=== PATIENT | female | born 1990 | race Caucasian/White ===

== ENCOUNTER 2018-09-27 14:11 | Emergency (ER) | payer BC ==
[~2018-09-27] VITALS: Ht 170.2 cm; Wt 86.2 kg
--- NOTE | ~2018-09-27 | PROC ---
[address] [address] PROCEDURE REPORT Name: BASIL DSOUZA Room: [facility] ESHA Toney#: [id number] Admission: 09/27/18 Attend Phys: Discharge: 09/27/18 Date of : 88 Report #: [id number] THIS REPORT FOR: //name// For GI report, please see the Provation report in [employer] 7 content. By: [id number] Records Staff HUMBERTO /PRICILLA
[~2018-09-27 14:11] MED LIST: EPIPEN 2-P0.3 MG/0.3 IM; FLONASE 0.05%50 MCG NASAL; PROAIR HFA8.5 GM INH
[2018-09-27] MEDS ORDERED: ZYRTEC10 M5 PO (14:36)
[2018-09-27 15:15] LABS: ABSOLUTE BASOPHILS 0.1 thou/uL (0.0-0.2); ABSOLUTE EOSINOPHILS 0.1 thou/uL (0.0-0.7); ABSOLUTE MONOCYTES 0.5 thou/uL (0.0-1.2); BASOPHILS 0.6 %; EOSINOPHILS 0.7 %; HEMATOCRIT 43.8 % (37.0-47.0); HEMOGLOBIN 14.9 gm/dL (12.0-15.0); LYMPHOCYTES 9.4 %; MCH 30.3 pg (26.0-34.0); MCHC 34.1 g/dL (28.0-37.0); MONOCYTES 4.4 %; NUCLEATED RBCS 0 /100WBC; PLATELET COUNT* 289 thou/uL (150-400); POLYS 84.9 %; RBC 4.92 mil/uL (4.20-5.00); RDW-CV 12.5 % (10.5-14.5); WBC 10.6 thou/uL (4.0-11.0)
[2018-09-27 15:24] LABS: CALCIUM 9.3 mg/dL (8.5-10.1); CREATININE 0.8 mg/dL (0.6-1.3); POTASSIUM 3.9 mmol/L (3.5-5.1)
[2018-09-27 15:26] LABS: APTT 30.3 Seconds (25.0-31.3); PROTIME 10.7 Seconds (9.20-11.50)
[2018-09-27 16:05] VITALS: BP 143/92
--- NOTE | 2018-09-29 14:05 | PATH ---
[facility] [address] [place] [address] PATHOLOGY RPT PROCEDURE Name: SIVANESTEBANBASIL Maciel VANESSA Room: [facility] Feng#: [id number] Admission: 09/27/18 Date of : 88 Discharge: 09/27/18 Report #: [id number] Path Case #: [id number] [facility] Accession Number: [id number] . 01 Material submitted: . PART A: esophagus - ESOPHAGEAL BIOPSIES 40CM FOR EOE PART B: esophagus - ESOPHAGEAL BIOPSIES 35CM FOR EOE PART C: esophagus - ESOPHAGEAL BIOPSIES 30CM FOR EOE . 01 Clinical history: . Eosinophilic esophagitis . 02 Diagnosis: A. Esophagus, 40 cm, biopsy: - Hyperplastic squamous epithelium with increased intraepithelial eosinophils. - Ulceration, focal, with acute ulcer exudate. . B, C. Esophagus, 35 cm and 30 cm, biopsies: - Hyperplastic squamous epithelium with increased intraepithelial eosinophils. . (Please see comment) . (ASHIA:ivan; 09/29/2018) QLM/09/29/2018 . 02 Comment: The squamous epithelium in each of these three biopsies focally contains greater than 15 eosinophils/HPF. This finding is consistent with eosinophilic esophagitis. No evidence of atypia or malignancy is seen. . (SKM:ivan; 09/29/2018) . 02 Electronically signed: . Nemesio Bernal MD, Pathologist NPI- [id number] . 01 Gross description: . A. The specimen is received in formalin, labeled "Basil Tong, esophageal biopsy 40 cm". Received are two segments of pale bradley soft tissue ranging in size from 0.3 to 0.4 cm in maximum dimensions. The specimen is submitted entirely in cassette A1. . B. The specimen is received in formalin, labeled "Basil Tong, esophageal biopsy 35 cm for eosinophilic esophagitis". Received are two segments of pale bradley soft tissue ranging in size from 0.2 to 0.5 cm in maximum dimensions. The specimen is submitted entirely in cassette B1. [place] [address] PATHOLOGY RPT PROCEDURE Name: BASIL TONG Room: [facility] Feng#: [id number] Admission: 09/27/18 Date of : 88 Discharge: 09/27/18 Report #: [id number] Path Case #: [id number] . C. The specimen is received in formalin, labeled "Basil Tong, esophageal biopsy 30 cm for eosinophilic esophagitis". Received are two segments of pale bradley soft tissue ranging in size from 0.2 to 0.3 cm in maximum dimensions. The specimen is submitted entirely in cassette C1. (CAA; 09/28/2018) QAC/QAC . 02 Pathologist provided ICD-10: K20.9, K22.10 . 02 CPT . 374492, 659930, 191203 Specimen Comment: A courtesy copy of this report has been sent to Specimen Comment: [phone], . Specimen Comment: Report sent to / DR COLEMAN Performed at: 01 [facility] [address] [place] [address] [address], [place], [place] [id number] MD Paxton Briceño MD Phone: [phone] Performed at: [address] [facility] [address] [address], [place], [place] [id number] MD Gianfranco Flores MD Phone: [phone]
== END 2018-09-27 19:07 | disposition still patient (30) ==
LOC: M.ERS 14:11 → M.SUR 14:11
PROVIDERS: Emergency Medicine
DX: T18.128A Food in esophagus causing other injury, initial encounter (principal); R11.10 Vomiting, unspecified; J45.909 Unspecified asthma, uncomplicated; Z91.013 Allergy to seafood; Z91.018 Allergy to other foods; X58.XXXA Exposure to other specified factors, initial encounter; Y93.89 Activity, other specified; Y92.89 Other specified places as the place of occurrence of the external cause; Y99.8 Other external cause status